=== PATIENT | female | born 1980 | race Native Hawaiian/Other Pacific Islander ===

== ENCOUNTER 2018-10-29 13:29 | Inpatient (IN) | payer BC ==
[~2018-10-29] VITALS: Ht 160 cm; Wt 68.0 kg
[2018-10-29] MEDS ORDERED: BUPR-96 PO (13:47)
[2018-10-29] MEDS ORDERED: FLUO10CA26 PO (13:47)
[2018-10-29] MEDS ORDERED: QUET50TA PO (13:47)
--- NOTE | 2018-10-29 14:13 | NUR ---
PT IS A/OX4, BIB [facility] FROM WORK, C/O SEIZURE ACTIVITY. 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 SYNTHETIC PLASTERER'S WERE TOLD OF SEIZURE-LIKE ACTIVITY ON-SCENE. NO HX OF SEIZURE. PT PRESENTS LETHARGIC AND C/O NAUSEA W/ 1 EPISODE OF VOMITING. VSS, SINUS TACHY ON MONITOR. 20G IV ACCESS ESTABLISHED IN [facility] BY [facility].
[2018-10-29 14:21] LABS: BASOPHILS # (AUTO) 0.1 K/uL (0.0-8.0); BASOPHILS % (AUTO) 1.7 % (0.0-2.0); EOSINOPHILS # (AUTO) 0.1 K/uL (0.0-0.7); EOSINOPHILS % (AUTO) 1.6 % (0.0-7.0); HEMATOCRIT 37.8 % (31.2-41.9); HEMOGLOBIN 12.8 g/dL (10.9-14.3); LYMPHOCYTES # (AUTO) 1.1 K/uL (20.0-40.0); LYMPHOCYTES % (AUTO) 20.6 % (20.5-51.5); MEAN CORPUSCULAR HEMOGLOBIN 30.2 uug (24.7-32.8); MEAN CORPUSCULAR HGB CONC 34 g/dL (32.3-35.6); MEAN CORPUSCULAR VOLUME 89.2 fL (75.5-95.3); MONOCYTES # (AUTO) 0.4 K/uL (2.0-10.0); NEUTROPHILS # (AUTO) 3.7 K/uL (1.8-8.9); NEUTROPHILS % (AUTO) 69.1 % (38.5-71.5); PLATELET COUNT (AUTO) 308 K/uL (179-408); RED BLOOD CELL COUNT(AUTO) 4.24 MIL/uL (3.63-4.92); WHITE BLOOD COUNT (AUTO) 5.4 K/uL (3.8-11.8)
[2018-10-29 14:23] LABS: CARBON DIOXIDE 25 mmol/L (21-32); CHLORIDE 103 mmol/L (98-107); GLUCOSE 112 mg/dL (74-106); POTASSIUM 3.8 mmol/L (3.5-5.1); UREA NITROGEN, BLOOD 8 mg/dL (7-18)
[2018-10-29 14:23] LABS: *URINE HCG, QUAL NEGATIVE (NEGATIVE)
[2018-10-29 14:24] LABS: ETHANOL < 3 MG/DL (0-0)
[2018-10-29 14:29] LABS: ALANINE AMINOTRANSFERASE 26 U/L (14-59); ALKALINE PHOSPHATASE 48 U/L (50-136); ASPARTATE AMINOTRANSFERASE 17 U/L (15-37); BILIRUBIN,DIRECT 0.1 mg/dL (0.0-0.2); BILIRUBIN,TOTAL 0.4 mg/dL (0.2-1.0); TOTAL PROTEIN, SERUM 7.1 g/dL (6.4-8.2)
[2018-10-29] MEDS ORDERED: MAGNESIUM SULFATE/D5W 200 ML ONE (14:29)
[2018-10-29] MEDS: MAGNESIUM SULFATE/D5W 100 ML IV SCH ×2 (14:34→15:26)
--- NOTE | 2018-10-29 15:18 | NUR ---
ADMITTING REPORT GIVEN TO DARIO TORO.
--- NOTE | 2018-10-29 16:58 | NUR ---
Pt. admitted to TELE 304, under care of Dr. BUSTAMANTE Belongs List completed
--- NOTE | 2018-10-29 17:21 | NUR ---
38 year old female received from er via gurney to room 304 ,pt is axox4.call light with in reach ,vs are stable . called for admission orders
[2018-10-29 17:41] LABS: *AMPHETAMINE, URINE POSITIVE (NEGATIVE); *CANNABINOID, URINE NEGATIVE (NEGATIVE); *COCCAINE, URINE NEGATIVE (NEGATIVE); *OPIATE, URINE NEGATIVE (NEGATIVE); *PHENCYCLIDINE SCREEN,URINE NEGATIVE (NEGATIVE)
[2018-10-29 17:42] LABS: *BARBITURATE, URINE NEGATIVE (NEGATIVE)
[2018-10-29 17:44] VITALS: BP 125/82
--- NOTE | 2018-10-29 19:15 | NUR ---
Received patient in bed awake, A&Ox4. Not in distress at this time. Seizure precautions observed. Bed kept in low and locked position w/ padded side rails up x 2. Call light within reach. Will continue to monitor
[2018-10-29 20:00] VITALS: BP 127/85
[2018-10-29] MEDS ORDERED: IV NS 1000 ML 1,000 ML IV PRN (20:18)
[2018-10-29] MEDS ORDERED: ACETAMINOPHEN 325 MG TABLET PO PRN (20:30)
[2018-10-29] MEDS ORDERED: Z GUARD REMEDY PASTE 57 GM TUBE TOP PRN (20:30)
[2018-10-29] MEDS ORDERED: ONDANSETRON 4 MG/2 ML VIAL IV PRN (20:30)
[2018-10-29] MEDS ORDERED: QUETIAPINE FUMARATE 25 MG TABLET PO SCH (21:00)
[2018-10-29] MEDS ORDERED: TEMAZEPAM 30 MG CAPSULE PO PRN (22:45)
[2018-10-29] MEDS ORDERED: TEMAZEPAM 15 MG CAPSULE PO PRN (23:00)
--- NOTE | 2018-10-29 23:00 | NUR ---
Patient requested for a sleeping pill, n.o from Dr. Rhodes for Restoril 30mg PO QHS PRN, noted and carried out
[2018-10-30 04:00] VITALS: BP 112/77
--- NOTE | 2018-10-30 06:30 | NUR ---
Patient slept for 3 hours. Not in distress at this time. All needs attended. Will endorse accordingly
[2018-10-30 06:53] LABS: EOSINOPHILS # (AUTO) 0.1 K/uL (0.0-0.7); EOSINOPHILS % (AUTO) 1.4 % (0.0-7.0); HEMATOCRIT 34.8 % (31.2-41.9); HEMOGLOBIN 12.1 g/dL (10.9-14.3); LYMPHOCYTES # (AUTO) 0.7 K/uL (20.0-40.0); MEAN CORPUSCULAR HEMOGLOBIN 30.7 uug (24.7-32.8); MEAN CORPUSCULAR HGB CONC 35 g/dL (32.3-35.6); MEAN CORPUSCULAR VOLUME 88.2 fL (75.5-95.3); MONOCYTES # (AUTO) 0.3 K/uL (2.0-10.0); MONOCYTES % (AUTO) 6.1 % (0.0-11.0); NEUTROPHILS # (AUTO) 3.1 K/uL (1.8-8.9); NEUTROPHILS % (AUTO) 73.5 % (38.5-71.5); PLATELET COUNT (AUTO) 260 K/uL (179-408); RED BLOOD CELL COUNT(AUTO) 3.95 MIL/uL (3.63-4.92); WHITE BLOOD COUNT (AUTO) 4.2 K/uL (3.8-11.8)
[2018-10-30 06:55] LABS: BILIRUBIN,TOTAL 0.6 mg/dL (0.2-1.0); CREATININE 0.8 mg/dL (0.6-1.3); MAGNESIUM 2.4 mg/dL (1.8-2.4); PHOSPHOROUS 2.5 mg/dL (2.5-4.9); POTASSIUM 3.8 mmol/L (3.5-5.1); TOTAL PROTEIN, SERUM 6.5 g/dL (6.4-8.2)
[2018-10-30 07:00] LABS: THYROID STIMULATING HORMONE 2.402 mIU/mL (0.358-3.740)
--- NOTE | 2018-10-30 07:45 | NUR ---
Received patient awake in bed. AAOx4. In no acute distress. Denies any pain or discomfort at this time. Seizure precautions maintained. Comfort provided. Call light within reach. Will continue to monitor.
[2018-10-30] MEDS ORDERED: FLUOXETINE HCL 10 MG CAPSULE PO SCH (09:00)
[2018-10-30 11:14] VITALS: BP 128/83
--- NOTE | 2018-10-30 12:50 | NUR ---
Discharge orders in place. Vital signs stable. Denies any pain or discomfort. Exit care provided. Education given on continuity of care. IV and armband removed.
== END 2018-10-30 12:50 | disposition home or self-care (01) | DRG 101 ==
LOC: ER 13:29 → TELE3 16:29
PROVIDERS: ADMIT Nurse Practitioner Acute Care; ATTEND Nurse Practitioner Acute Care
DX: R56.9 Unspecified convulsions (principal); E87.2 Acidosis; T43.295A Adverse effect of other antidepressants, initial encounter; T43.595A Adverse effect of other antipsychotics and neuroleptics, initial encounter; Y92.59 Other trade areas as the place of occurrence of the external cause; G47.00 Insomnia, unspecified; I45.81 Long QT syndrome; F32.9 Major depressive disorder, single episode, unspecified; E83.51 Hypocalcemia; E78.00 Pure hypercholesterolemia, unspecified
CPT/HCPCS: 36415; 70450; 80307; 83605; 83735; 84100; 84443; 84703; 85025; 85730; 87040; 93005; A4663; G0378; G0480; J3475